=== PATIENT | male | born 1995 | race Caucasian/White ===

== ENCOUNTER 2018-02-08 16:55 | Emergency (ER) | payer BC ==
--- NOTE | 2018-02-08 17:50 | EDPHY ---
H & P Stated Complaint: sore throat for 2 weeks and leg pain for 1 weeks Time Seen by Provider: 02/08/18 17:48 HPI/ROS: HPI: This is a 22-year-old male who presents with Chief Complaint: sore throat for 2 weeks and leg pain for 1 weeks Location: Throat Quality: Sore Duration: 2 week Signs and Symptoms: no fever, no nausea, no vomiting, no diarrhea, no urinary symptoms, no chest pain, no shortness of breath, no wheezing, no cough,+sore throat, no neck stiffness, + joint pain, no swollen glands, no ear pain, no rash Timing: Acute, worse Severity: Moderate Context: Patient is student at [employer], presents from [facility], with complaints of sore throat for the last 2 weeks. Negative for rapid strep and throat culture. Over the last 1 week he has had bilateral hip pain and joint achiness. He had laboratory studies performed 2 days ago that showed elevated WBC and elevated ESR and CRP. Today labs were repeated and ESR and CRP has increased. He is ambulatory with achiness in his bilateral hips. Denies any trauma, injury, rash. He was never treated with antibiotics. Modifying Factors: Tylenol and ibuprofen with mild transient relief Comment: ROS: A comprehensive 10 system review of systems is otherwise negative aside from elements mentioned in the history of present illness. MEDICAL/SURGICAL/SOCIAL HISTORY: Medical history: Generally healthy. Does not take any regular medications. Surgical history: Breast lumpectomy Social history: Never smoked. Originally from [place]. Family history noncontributory. CONSTITUTIONAL: Extremely well-appearing, adult white male, awake and alert, no obvious distress HEENT: Atraumatic and normocephalic, PERRL, EOMI. Nares patent; no rhinorrhea; no nasal mucosal edema. Tympanic membranes clear. Oropharynx clear, tonsils 1 + with no erythema; uvula midline; no exudate and moist pink mucosa. Airway patent. No lymphadenopathy. No meningismus. Cardiovascular: Normal S1/S2, regular rate, regular rhythm, without murmur rub or gallop. PULMONARY/CHEST: Symmetrical and nontender. Clear to auscultation bilaterally. Good air movement. No accessory muscle usage. ABDOMEN: Soft, nondistended, nontender, no rebound, no guarding, no peritoneal signs, no masses or organomegaly. No CVAT. EXTREMITIES: 2/2 pulses, strength 5/5, bilateral HIP: Flexion to 125, extension to 115, hyper extension to 15, abduction to 45. Mild Pain with internal rotation and external rotation. No tenderness over greater trochanter. Leg lengths are equal. no deformities, no clubbing, no cyanosis or edema. Negative Homans sign. NEUROLOGICAL: no focal neuro deficits. GCS 15. Ambulatory without any deficits. SKIN: Warm and dry, no erythema. no rash. Good capillary refill. Source: Patient Exam Limitations: No limitations - Personal History Current Tetanus/Diphtheria Vaccine: Yes Current Tetanus Diphtheria and Acellular Pertussis (TDAP): Yes - Medical/Surgical History Hx Asthma: No Hx Chronic Respiratory Disease: No Hx Diabetes: No Hx Cardiac Disease: No Hx Renal Disease: No Hx Cirrhosis: No Hx Alcoholism: No Hx HIV/AIDS: No Hx Splenectomy or Spleen Trauma: No Other PMH: lump removed from left breast - Social History Smoking Status: Never smoked Constitutional: Initial Vital Signs Temperature (C) 36.9 C 02/08/18 17:10 Heart Rate 86 02/08/18 17:10 Respiratory Rate 16 02/08/18 17:10 Blood Pressure 147/95 H 02/08/18 17:10 O2 Sat (%) 98 02/08/18 17:10 O2 Delivery Mode Room Air Allergies/Adverse Reactions: No Known Allergies Allergy (Unverified 02/08/18 17:14) Home Medications: Medication Instructions Recorded Cefuroxime Axetil [Ceftin (*)] 250 mg PO BID #20 tab 02/08/18 Medical Decision Making - Diagnostics Imaging Results: Imaging Impressions Pelvis X-Ray 02/08/18 18:36 Impression: 1. Negative AP pelvis radiograph. ED Course/Re-evaluation: Vital signs reviewed and stable upon arrival. IV access and laboratory studies obtain. Given 1 L normal saline, IV Toradol 30 mg, IV Rocephin 2 g for presumed strep infection Pelvic x-ray ordered my read show no fracture, AVN No signs of meningitis/tonsillar abscess/septic arthritis 1899: Laboratory studies reviewed. WBC 15 K, lactic acid 0.7, CRP 78, CPK 50, negative mono, creatinine 0.6. Referral to Rheumatology to evaluate for juvenile rheumatoid arthritis versus Still's disease Patient will be given a prescription for Ceftin for possibility of strep and advised to take ibuprofen 600 mg 3 times a day with food. No signs of neurovascular compromise/tenting of skin/compartment syndrome/ extremities and joints examined above and below area of concern and are neurovascularly intact/septic arthritis/gouty arthropathy. This patient was seen under the supervision of my secondary supervising physician. Discussed this patient with Dr. Guerra. Differential Diagnosis: Adult fever including but not limited to viral syndromes including influenza, strep pharyngitis, rheumatic fever, scarlet fever, EBV, urinary tract infection , pneumonia and sepsis. - Data Points Laboratory Results: Laboratory Results 02/08/18 18:24 02/08/18 18:24 02/08/18 02/08/18 02/08/18 18:55 18:24 18:24 WBC RBC Hgb Hct MCV MCH MCHC RDW Plt Count MPV Neut % (Auto) Lymph % (Auto) [place] % (Auto) Eos % (Auto) Baso % (Auto) Nucleat RBC Rel Count Absolute Neuts (auto) Absolute Lymphs (auto) Absolute Monos (auto) Absolute Eos (auto) Absolute Basos (auto) Absolute Nucleated RBC Immature Gran % Immature Gran # ESR VBG Lactic Acid 0.7 mmol/L mmol/L (0.7-2.1) Sodium 139 mEq/L mEq/L (135-145) Potassium 4.2 mEq/L mEq/L (3.3-5.0) Chloride 100 mEq/L mEq/L (97-110) Carbon Dioxide 25 mEq/l mEq/l (22-31) Anion Gap 14 mEq/L mEq/L (6-14) BUN 12 mg/dL mg/dL (7-23) Creatinine 0.6 mg/dL L mg/dL (0.7-1.3) Estimated GFR > 60 Glucose 98 mg/dL mg/dL (70-100) Calcium 9.3 mg/dL mg/dL (8.5-10.4) Creatine Kinase 50 IU/L IU/L (0-224) C-Reactive Protein 78.3 mg/L H mg/L (<10.0) Monoscreen NEGATIVE (NEGATIVE) 02/08/18 18:24 WBC 15.42 10^3/uL H 10^3/uL (3.80-9.50) RBC 4.70 10^6/uL 10^6/uL (4.40-6.38) Hgb 14.4 g/dL g/dL (13.7-17.5) Hct 42.6 % % (40.0-51.0) MCV 90.6 fL fL (81.5-99.8) MCH 30.6 pg pg (27.9-34.1) MCHC 33.8 g/dL g/dL (32.4-36.7) RDW 12.4 % % (11.5-15.2) Plt Count 402 10^3/uL H 10^3/uL (150-400) MPV 8.8 fL fL (8.7-11.7) Neut % (Auto) 70.7 % % (39.3-74.2) Lymph % (Auto) 18.5 % % (15.0-45.0) [place] % (Auto) 9.4 % % (4.5-13.0) Eos % (Auto) 0.8 % % (0.6-7.6) Baso % (Auto) 0.3 % % (0.3-1.7) Nucleat RBC Rel Count 0.0 % % (0.0-0.2) Absolute Neuts (auto) 10.90 10^3/uL H 10^3/uL (1.70-6.50) Absolute Lymphs (auto) 2.86 10^3/uL 10^3/uL (1.00-3.00) Absolute Monos (auto) 1.45 10^3/uL H 10^3/uL (0.30-0.80) Absolute Eos (auto) 0.12 10^3/uL 10^3/uL (0.03-0.40) Absolute Basos (auto) 0.04 10^3/uL 10^3/uL (0.02-0.10) Absolute Nucleated RBC 0.00 10^3/uL 10^3/uL (0-0.01) Immature Gran % 0.3 % % (0.0-1.1) Immature Gran # 0.05 10^3/uL 10^3/uL (0.00-0.10) ESR 33 MM/HR H MM/HR (0-15) VBG Lactic Acid Sodium Potassium Chloride Carbon Dioxide Anion Gap BUN Creatinine Estimated GFR Glucose Calcium Creatine Kinase C-Reactive Protein Monoscreen Medications Given: Discontinued Medications Dexamethasone (Decadron Injection) 10 mg IVP EDNOW ONE Stop: 02/08/18 18:01 Last Admin: 02/08/18 18:25 Dose: 10 mg Ceftriaxone Sodium 2 gm/ (Sodium Chloride) 50 mls @ 100 mls/hr IV EDNOW ONE PRN Reason: Protocol Stop: 02/08/18 18:28 Last Admin: 02/08/18 18:50 Dose: 50 mls Sodium Chloride (Ns) 1,000 mls @ 0 mls/hr IV ONCE ONE; Wide Open PRN Reason: Protocol Stop: 02/08/18 18:00 Last Admin: 02/08/18 18:25 Dose: 1,000 mls Ketorolac Tromethamine (Toradol) 30 mg IVP EDNOW ONE Stop: 02/08/18 18:01 Last Admin: 02/08/18 18:25 Dose: 30 mg Departure - Departure Disposition: Home, Routine, Self-Care Clinical Impression: Pharyngotonsillitis, Bilateral hip pain Condition: Good Instructions: Pharyngitis (ED), Muscle Cramp (ED) Additional Instructions: Rest as much as possible until you are feeling better. Consume a minimum of 8-10 glasses of water or electrolyte fluid replacement drinks that include Gatorade, Powerade, Pedialyte. Take antibiotics as directed until complete. Take ibuprofen 600 mg every 8 hr with food as needed for pain. Follow-up with the [facility] in 3-4 days. Follow-up with Rheumatology to further evaluate for juvenile rheumatoid arthritis versus Still's disease. Return to the ER immediately if you cannot swallow, have drooling, fevers, neck stiffness, cannot open your jaw, or any other symptoms that concern you. Follow-Up: Please follow-up as noted above. Follow up sooner if your condition worsens or if you develop any new problems Call as soon as possible for an appointment. Be clear when you call for an appointment that this is an Emergency Department follow-up. Contact the Emergency Department if you are having trouble arranging follow up care. Our referrals are not based on your insurance network. When time allows, contact your insurance carrier to verify the referral physician is in your plan. If not, get a referral for an in-linux network systems administrator. Please ask us if you have any questions. Referrals: [facility] [Clinic] - 3-4 days, if not improved Tristen Baez MD [[facility] [place] Primary [place] Provider] - As per Instructions Stand Alone Forms: School Excuse Prescriptions: Cefuroxime Axetil [Ceftin (*)] 250 mg PO BID #20 tab
[2018-02-08] MEDS ORDERED: NS 1,000 ML IV ONE (17:59)
[2018-02-08] MEDS ORDERED: KETOROLAC 30 MG/1 ML SDV IVP ONE (18:00)
[2018-02-08] MEDS ORDERED: DEXAMETHASONE 10 MG/ML VIAL IVP ONE (18:00)
[2018-02-08] MEDS ORDERED: DEXAMETHASONE 4 MG/ML VIAL ONE (18:17)
[2018-02-08 18:41] LABS: PLATELET COUNT 402 10^3/uL (150-400)
[2018-02-08 18:59] LABS: CREATINE KINASE 50 IU/L (0-224)
[2018-02-08 19:49] VITALS: BP 135/76
== END 2018-02-08 19:46 | disposition home or self-care (01) ==
DX: J02.9 Acute pharyngitis, unspecified (principal); M25.551 Pain in right hip; M25.552 Pain in left hip; E86.9 Volume depletion, unspecified
CPT/HCPCS: 96365; J0696; J1100; J1885